=== PATIENT | male | born 1950 | race Caucasian/White ===

== ENCOUNTER 2019-11-18 11:58 | Outpatient (CLI) | payer MEDICARE, BC ==
--- NOTE | 2019-11-18 13:12 | RAD ---
PA AND LATERAL CHEST: Date: 11/18/2019 HISTORY: Cough and congestion. COMPARISON: 10/04/2016 study. FINDINGS: Heart size within normal limits. A large right pleural effusion is noted. Some associated parenchymal change. The left lung is clear. IMPRESSION: Large right pleural effusion. POS: [facility]
== END 2019-11-18 11:59 | disposition home or self-care (01) ==
LOC: SCSRAD 11:58
PROVIDERS: ATTEND Family Medicine
DX: R05 Cough (principal); J90 Pleural effusion, not elsewhere classified
CPT/HCPCS: 71046